=== PATIENT | male | born 1960 | race Caucasian/White ===

== ENCOUNTER 2018-11-19 08:18 | Inpatient (IN) ==
[2018-11-19] MEDS ORDERED: DILAUDID IV ONE (08:24)
[2018-11-19] MEDS: NS 1,000 ML IV ONE ×2 (08:25→10:26)
[2018-11-19] MEDS ORDERED: ZOFRAN IV ONE (08:25)
[2018-11-19] MEDS ORDERED: BENADRYL IV ONE ×3 (08:44→14:03)
[2018-11-19 08:55] LABS: BASO# 0.02 X1000 (0.0-0.2); BASO% 0.1 % (0.0-0.8); EOS% 1.4 % (0.0-10.0); HEMATOCRIT 50.4 % (42.0-52.0); HEMOGLOBIN 17.9 g/dL (14.0-18.0); IMM GRAN# 0.06 X1000 (0.0-0.04); IMM GRAN% 0.3 % (0.0-0.5); LYMPH# 6.33 X1000 (1.2-3.4); LYMPH% 29.1 % (20.5-51.1); MCH 29.1 PG (27-31); MCHC 35.5 g/dL (33-37); MONO% 4.6 % (1.7-9.3); NEUT# 14.01 X1000 (1.4-6.5); NEUT% 64.5 % (42.2-75.2); PLT 362 X1000 (130-400); RBC 6.15 XMIL (4.7-6.1); RDW 13.4 % (11.5-14.5); WBC 21.72 X1000 (4.8-10.8)
--- NOTE | 2018-11-19 09:08 | Diag Imaging Result Doc PS360 ---
EXAM: ABDOMEN FLAT/UPRIGHT - 11/19/2018 HISTORY: abdominal pain TECHNIQUE: Supine and upright abdomen COMPARISON: None. FINDINGS: The bowel gas pattern appears nonspecific and nonobstructive. There is no free air identified. There are surgical clips at the right upper quadrant. There are lumbar spine surgical changes noted. IMPRESSION: Nonspecific bowel gas pattern. Electronically signed by Domingo Burrell 11/19/2018 9:06 AM
--- NOTE | 2018-11-19 09:09 | Diag Imaging Result Doc PS360 ---
EXAM: CHEST-1 VIEW - 11/19/2018 HISTORY: abdominal pain TECHNIQUE: One view chest COMPARISON: 12/13/2016 FINDINGS: Heart size is normal. Inspiration is mildly shallow. There is mild prominence of lower lung interstitial markings which appears to be chronic. There is no acute consolidation, pleural effusion, or pneumothorax identified. IMPRESSION: Mildly shallow inspiration. No other evidence of acute disease. Electronically signed by Domingo Burrell 11/19/2018 9:07 AM
[2018-11-19 09:12] LABS: AGAP 20; ALB/GLOB RATIO 1.2; ALKALINE PHOSPHATASE 120 U/L (32-122); BUN 26 mg/dL (8-22); CALCIUM 8.3 mg/dL (8.8-10.2); CHLORIDE 99 mmol/L (98-107); CK PROFILE 53 U/L (24-204); COSMO 288; ESTIMATED GFR > 60; GLUCOSE 260 mg/dL (70-104); GOT 21 U/L (10-34); GPT 35 U/L (10-44); LIPASE 23 U/L (13-60); POTASSIUM 3.8 mmol/L (3.5-5.1); SODIUM 137 mmol/L (136-145); TCO2 18 mmol/L (25-35); TOTAL BILIRUBIN 1.33 mg/dL (0.20-1.00); TOTAL PROTEIN 7.3 g/dL (6.3-8.3)
[2018-11-19] MEDS ORDERED: ZOSYN 3.375 GM in NS 50 ML IV ONE (09:14)
[2018-11-19] MEDS ORDERED: NS 2,000 ML ONE (10:18)
--- NOTE | 2018-11-19 10:28 | Diag Imaging Result Doc PS360 ---
EXAM: CT ABD/PELVIS W/IV CONT ONLY - 11/19/2018 HISTORY: abdominal pain,leukocytosis TECHNIQUE: CT abdomen/pelvis with intravenous contrast. No oral contrast administered per request of the referring provider. COMPARISON: 12/13/2016 FINDINGS: The visualized lung bases appear clear except for mild dependent atelectasis. There are some emphysematous changes noted. The stomach is distended with fluid. There is generalized mild to moderate small bowel wall thickening. There is no evidence of bowel obstruction. There are some retained fluid in the colon. The colon presley do not appear grossly thickened. There is a small amount of free fluid, some which is located adjacent to the appendix. The appendix shows no obvious inflammation. There is no abscess identified. There is no free air identified. There is mild uncomplicated colonic diverticulosis. There is fatty infiltration of the liver similar to prior. There are no other substantial abnormalities of the liver, spleen, adrenal glands, or pancreas identified. The gallbladder surgically absent. There are fairly extensive atherosclerotic calcifications noted. There are lumbar spine postsurgical changes noted. There is chronic thickening of the urinary bladder presley. IMPRESSION: Moderate generalized gastroenterocolitis. Small amount of free fluid. No free air. No bowel obstruction. No abscess. Mild uncomplicated colonic diverticulosis. This exam was performed using automated exposure control, adjustment of mA or kV according to patient size, and/or use of iterative reconstruction technique. Electronically signed by Domingo Burrell 11/19/2018 10:26 AM
[2018-11-19 10:32] LABS: URINE SOURCE CLEAN CATCH
[2018-11-19 10:37] LABS: BILIRUBIN URINE NEGATIVE (NEGATIVE); BLOOD URINE NEGATIVE (NEGATIVE); COLOR YELLOW; GLUCOSE URINE 150 mg/dL (NEGATIVE); KETONE URINE NEGATIVE (NEGATIVE); LEUKOCYTES URINE NEGATIVE (NEGATIVE); NITRITE URINE NEGATIVE (NEGATIVE); PROTEIN URINE 30 mg/dL (NEGATIVE); TURBIDITY URINE CLEAR (CLEAR); UR EPITHELIAL CELLS <10 /HPF (<10); URINE BACTERIA NEGATIVE /HPF; URINE RBC <10 /HPF (<10); URINE WBC <10 /HPF (<10); UROBILINOGEN URINE NORMAL (NORMAL)
[2018-11-19 10:46] LABS: SP GRAVITY URINE < 1.005
[2018-11-19] MEDS ORDERED: NS 500 ML IV ONE (11:05)
[2018-11-19] MEDS ORDERED: NS 1,000 ML IV ONE (11:05)
[2018-11-19] MEDS ORDERED: MAXIPIME 2 GM in NS 100 ML IV ONE (11:05)
--- NOTE | 2018-11-19 11:12 | PROVIDER DOCUMENTATION ---
This chart was entered by Ita Hallman Scribe, acting as scribe for Dale Lynne MD. HPI-Abdominal Pain/GI Problem - General Chief Complaint: Abdominal Pain Stated Complaint: ABDOMINAL PAIN Time Seen by Provider: 11/19/18 08:24 Source: patient, family () Allergies/Adverse Reactions: Patient Allergies Allergy/AdvReac Type Severity Reaction Status Date / Time bee venom protein (honey bee) Allergy Severe ANAPHYLAXIS Verified 11/19/18 10:00 Sulfa (Sulfonamide Allergy Intermediate RASH Verified 11/19/18 10:00 Antibiotics) vancomycin Allergy ANAPHYLAXIS Verified 11/19/18 10:00 Home Medications: Home Medication List Medication Instructions Recorded Confirmed Last Taken Type Aspirin 325 mg PO DAILY 10/31/13 11/19/18 11/19/18 History Glyburide 5 mg PO BID 10/31/13 11/19/18 11/19/18 History Pantoprazole Sodium [Protonix] 40 mg PO DAILY 10/31/13 11/19/18 11/19/18 History Simvastatin [Zocor] 20 mg PO QHS 10/31/13 11/19/18 1 Day Ago History ~11/18/18 Albuterol Sulfate [Ventolin Hfa] 2 puff INH BID 05/23/14 11/19/18 11/19/18 History Insulin Glargine,Hum.rec.anlog 40 unit SQ QHS 12/13/16 11/19/18 1 Day Ago History [Lantus Solostar] ~11/18/18 Oxycodone HCl [Roxicodone] 30 mg PO TID PRN 12/23/16 11/19/18 11/19/18 History Lisinopril/Hydrochlorothiazide 1 ea PO QAM 11/19/18 11/19/18 11/19/18 History [Lisinopril-Hctz 20-25 mg Tab] - History of Present Illness-ABD Nature of Presenting Problems: 58 y/o male presents to the ED via EMS with complaint and abdominal pain with feeling of pressure and "going to pop", nausea, dry heaves, and profuse watery diarrhea since yesterday and worsening this am after eating a lot of waffles. states the patient passed out twice prior to arrival but was easily aroused. The patient denies urinary symptoms. H/o diabetes, chronic back pain for which he takes Oxycodone, COPD, and previous bladder CA, allergy to Sulfur and VANCOMYCIN. Previous history of cholecystectomy and back surgery. PCP Dr. Mcclendon. Abdominal Pain Onset Location: reports: generalized abdomen Pain Radiation: reports: no radiation Quality of Pain: reports: fullness, pressure Onset/Duration: reports: 24 hours ago Timing: reports: still present Activities at Onset: reports: light activity Exposure to sick contacts?: No Modifying Factors: worse with: eating Associated Symptoms: reports: diarrhea, nausea, other (dry heave). denies: chest pain, fever/chills, genitourinary problems Dark Stools Present?: reports: none noticed Rectal Bleeding: reports: none Rectal Pain: reports: none Bruising or Bleeding Gums?: No Similar Symptoms Previously?: No Recently seen or treated by another doctor?: No Review of Systems - Adult - REVIEW OF SYSTEMS - ADULT Constitutional: reports: no symptoms reported Eyes: reports: no symptoms reported Ears, Nose, Mouth & Throat: reports: no symptoms reported Cardiovascular: denies: chest pain, irregular heart rate, palpitations Respiratory: reports: no symptoms reported Gastrointestinal: reports: see HPI, abdominal pain (pressure/fullness), diarrhea , nausea, other (dry heaves) Genitourinary: denies: dysuria, hematuria, hesitency, urinary retention, urgency Musculoskeletal: reports: back pain (chronic). denies: bone pain, joint swelling Integumentary: reports: no symptoms reported Neurological: reports: no symptoms reported Psychiatric: reports: no symptoms reported Endocrine: reports: no symptoms reported Hematologic/Lymphatic: reports: no symptoms reported Allergic/Immunologic: reports: no symptoms reported All Other Systems: Reviewed and Negative Past History - Adult - PAST MEDICAL HISTORY-ADULT Review of Records: reports: Old Records Reviewed, Nursing Assessment Review, Medications Reviewed Major Childhood Illnesses: reports: denies history Cardiovascular: reports: denies history, HTN, hyperlipidemia Respiratory: reports: denies history, COPD Gastrointestinal: reports: denies history, GERD Obstetrical/Gynecological: reports: denies history Genitourinary: reports: denies history Musculoskeletal: reports: chronic pain Neurological: reports: denies history Psychiatric: reports: denies history Endocrine/Immune: reports: Diabetes, other Other Conditions: reports: denies history - PRIOR SURGERIES/PROCEDURES Surgical/Procedure History: reports: cholecystectomy, tonsillectomy, hernia repair - IMMUNIZATION STATUS Childhood Immunizations: See Nurse Assessment Flu Vaccine: See Nurse Assessment - FAMILY HISTORY Family History: reviewed, not pertinent - SOCIAL HISTORY Smoking: cigarettes, less than 1 pack/day Provider spent 3-5 mins advising pt. on dangers of tobacco.: Discussed manners to quit use, and f/u contacts for add'l counseling. Substance Use: denies Living Situation: family Physical Exam-General - PHYSICAL EXAM-ADULT Initial Vital Signs Reviewed: Yes - CONSTITUTIONAL General Appearance: alert, moderate distress - EYES Eyes: PERRL/EOMI - HEAD, EARS, NOSE, MOUTH & THROAT HENMT: pharynx normal, other (dry mucous membranes). negative: moist mucous membranes - RESPIRATORY Respiratory: lungs clear, normal breath sounds. negative: rales, rhonchi, wheezing - CARDIOVASCULAR Cardiovascular: no gallop, no murmur, tachycardia - GASTROINTESTINAL (ABDOMEN) Abdominal Exam: abnormal bowel sounds (diminished), distended (severely) - SKIN Integumentary: normal color, warm/dry, warm - NEUROLOGIC Neurologic: grossly normal - PSYCHIATRIC Psych/Mental Status: oriented x 3 Progress - PLAN OF CARE/RESULTS Progress/Plan/Lab Results: Vital Signs - 8 hr 11/19/18 08:23 11/19/18 08:25 Temperature 97.7 F Pulse Rate 118 H 116 H Respiratory Rate 26 H 24 Blood Pressure 107/71 O2 Sat by Pulse Oximetry 94 L 90 L Orders Category Date Time Status Cardiac Monitoring DIRECTED Care 11/19/18 08:25 Active FSBS/Accucheck Result NOW Care 11/19/18 08:24 Active Saline Loc DIRECTED Care 11/19/18 08:25 Active NPO Diet 11/19/18 08:25 Active ABDOMEN FLAT/UPRIGHT [RAD] Stat Exams 11/19/18 08:27 Ordered CHEST-1 VIEW [RAD] Stat Exams 11/19/18 08:27 Ordered CBC WITH ELECTRONIC DIFF [HEME] Stat Lab 11/19/18 08:25 Uncollected CK PROFILE [SP CHEM] Stat Lab 11/19/18 08:27 Uncollected COMPREHENSIVE METABOLIC PANEL [CHEM] Stat Lab 11/19/18 08:25 Uncollected LIPASE [CHEM] Stat Lab 11/19/18 08:25 Uncollected TROPONIN T Stat Lab 11/19/18 08:26 Uncollected URINALYSIS W/POSS RFLX CULT [URINALYSIS] Stat Lab 11/19/18 08:25 Uncollected 0.9% Sodium Chloride Inj [Ns] 1,000 ml Med 11/19/18 08:25 Active IV 999 mls/hr Hydromorphone [Dilaudid] Med 11/19/18 08:24 Discontinued 1 mg IV NOW ONE Ondansetron [Zofran] Med 11/19/18 08:25 Discontinued 4 mg IV NOW ONE EKG [EKG] Stat Ther 11/19/18 08:26 Ordered 0843 Blood sugar 253. The patient is complaining of itching all over. Will give Benadryl. 0902 The patient has developed generalized mottled erythematous appearance. Rates abdominal pain as 2/10 now. 0936 The patient feels warm to touch. Oral temp was normal. Will do core temp. Result Diagrams: 11/19/18 08:35 11/19/18 08:35 - EKG 1 Time of EKG reading by physician:: 08:47 EKG Read and Signed by:: Dale Lynne (No STEMI ) EKG Interpretation (*Must complete 3 of following elements*): Abnormal Rate: 106 Rhythm: sinus tachycardia Franklin: normal QRS: normal - XRAY 1 XRAY Study: Chest Impression: Normal (EXAM: CHEST-1 VIEW - 11/19/2018 HISTORY: abdominal pain TECHNIQUE: One view chest COMPARISON: 12/13/2016 FINDINGS: Heart size is normal. Inspiration is mildly shallow. There is mild prominence of lower lung interstitial markings which appears to be chronic. There is no acute consolidation, pleural effusion, or pneumothorax identified. IMPRESSION: Mildly shallow inspiration. No other evidence of acute disease. Electronically signed by [employer] 11/19/2018 9:07 AM) 2 XRAY Study: Abdomen (EXAM: ABDOMEN FLAT/UPRIGHT - 11/19/2018 HISTORY: abdominal pain TECHNIQUE: Supine and upright abdomen COMPARISON: None. FINDINGS: The bowel gas pattern appears nonspecific and nonobstructive. There is no free air identified. There are surgical clips at the right upper quadrant. There are lumbar spine surgical changes noted. IMPRESSION: Nonspecific bowel gas pattern. Electronically signed by [employer] 11/19/2018 9:06 AM) - CT/MRI 1 CT Study: Abdomen, Pelvis Impression: See EMR Report (EXAM: CT ABD/PELVIS W/IV CONT ONLY - 11/19/2018 HISTORY: abdominal pain,leukocytosis TECHNIQUE: CT abdomen/pelvis with intravenous contrast. No oral contrast administered per request of the referring provider. COMPARISON: 12/13/2016 FINDINGS: The visualized lung bases appear clear except for mild dependent atelectasis. There are some emphysematous changes noted. The stomach is distended with fluid. There is generalized mild to moderate small bowel wall thickening. There is no evidence of bowel obstruction. There are some retained fluid in the colon. The colon presley do not appear grossly thickened. There is a small amount of free fluid, some which is located adjacent to the appendix. The appendix shows no obvious inflammation. There is no abscess identified. There is no free air identified. There is mild uncomplicated colonic diverticulosis. There is fatty infiltration of the liver similar to prior. There are no other substantial abnormalities of the liver, spleen, adrenal glands, or pancreas identified. The gallbladder surgically absent. There are fairly extensive atherosclerotic calcifications noted. There are lumbar spine postsurgical changes noted. There is chronic thickening of the urinary bladder presley. IMPRESSION: Moderate generalized gastroenterocolitis. Small amount of free fluid. No free air. No bowel obstruction. No abscess. Mild uncomplicated colonic diverticulosis. This exam was performed using automated exposure control, adjustment of mA or kV according to patient size, and/or use of iterative reconstruction technique. Electronically signed by Domingo Burrell 11/19/2018 10:26 AM) - CONSULTS/PCP/HOSPITALIST Notification #1 *Consult/PCP/Hospitalist*: Dr. Toledo for Dr. Mcclendon Time Discussed: 11:15 Reason/Comments: elevated lactase acid Consult Disposition: Will see in ED, Admit Departure - Departure Date of Disposition Decision: 11/19/18 Time of Disposition Decision: 12:20 DIAGNOSIS: Elevated lactic acid level, Tobacco abuse disorder Leukocytosis Qualifiers: Leukocytosis type: unspecified Qualified Code(s): D72.829 - Elevated white blood cell count, unspecified Abdominal pain Qualifiers: Abdominal location: unspecified location Qualified Code(s): R10.9 - Unspecified abdominal pain Disposition: ADMITTED INPATIENT 09 Certified Medical Emergency: Emergent Condition: Stable - Critical Care Note This patient required my direct & personal management of CC.: Yes Total Time (mins): 65 Critical Care Statement: This patient required my direct personal management to treat or rule out processes, the absence of which, could potentiallly result in sudden, clinically significant life or limb threatening deterioration. Attestation - Physician/ JAVIER Attestation Patient care was provided by Advanced Practice Provider:: No The physician spent face to face time with patient:: Yes Advanced Practice Provider documentation review:: Supervising physician onsite and consulted in the evaluation and care of this patient. The physician did have a face to face encounter with the patient. This chart was documented by the indicated scribe, (Ita Hallman, Stephanie) and accurately reflects the services I performed and decisions made by me, Dale Lynne MD, as attested by the provider's signature.
[2018-11-19] MEDS ORDERED: EPINEPHRINE 8 MG in D5W 250 ML IV SCH (11:15)
[2018-11-19] MEDS ORDERED: PITRESSIN 40 UNIT in NS 100 ML IV SCH (11:15)
[2018-11-19] MEDS ORDERED: LEVOPHED 8 MG in D5 1/2 NS 250 ML IV SCH (11:15)
[2018-11-19] MEDS ORDERED: SODIUM CHLORIDE 0.9% INJ PRN (11:53)
[2018-11-19] MEDS ORDERED: PHENERGAN IV PRN (11:53)
--- NOTE | 2018-11-19 12:30 | HISTORY AND PHYSICAL ---
CHIEF COMPLAINT: Severe abdominal pain. PRESENT ILLNESS: This is the first recent [facility] admission for this 58-year-old white man, patient of Dr. Mcclendon, who presented to the emergency room with severe abdominal pain. He had some vomiting yesterday and today, and diarrhea. There was no hematemesis or melena. He had a pruritic rash this morning. He has taken no recent medicines. He has chronic back pain and is on oxycodone. CT of his abdomen was done in the emergency room, revealing some diverticulosis and some nonspecific gastritis and colitis. White blood count was almost 22,000. He has had no fever. He is admitted for further evaluation and treatment, and will be given Flagyl and Levaquin. PAST MEDICAL HISTORY: Significant for: 1. Bladder cancer. 2. Cholecystectomy. PRESENT MEDICATIONS: 1. Albuterol HFA inhaler b.i.d. 2. Aspirin 325 mg daily. 3. Glyburide 5 mg b.i.d. 4. Lantus insulin 40 units at bedtime. 5. Lisinopril HCT 20/25 one daily. 6. Oxycodone 30 mg q.6 hours p.r.n. pain. 7. Pantoprazole 40 mg one daily. 8. Simvastatin 20 mg at bedtime. ALLERGIES: Sulfa and vancomycin. REVIEW OF SYSTEMS: Unremarkable except for the above. FAMILY HISTORY: No colon cancer. There is history of hypertension and heart disease. SOCIAL HISTORY: and lives with his . PHYSICAL EXAMINATION: VITAL SIGNS: Temperature 98.6 degrees, heart rate 100, respirations 12, blood pressure 106/72. GENERAL: Patient is a well developed, well nourished white man in moderate distress with abdominal pain. HEENT: Pupils are equal, round, and reactive to light. Tympanic membranes without inflammation. Pharynx benign. NECK: Supple with no mass or lymphadenopathy. HEART: Regular in rate and rhythm with no murmur, rub, or gallop. LUNGS: Clear with no rales or rhonchi. ABDOMEN: Generalized tenderness. Bowel sounds are active. Tenderness is moderate, even after receiving some IV pain medicine in the emergency room. There is a generalized erythematous rash, urticarial. EXTREMITIES: No cyanosis, clubbing, or edema. RECTAL AND GENITALIA: Deferred. IMPRESSION: 1. Gastroenteritis. 2. Chronic back pain. 3. Hypercholesterolemia. 4. Urticarial rash of undetermined etiology. PLAN: Admit for further evaluation and treatment. cc: Armando Toledo MD
[2018-11-19 12:39] LABS: INR 0.91
[2018-11-19 12:40] LABS: PTT 26.7 Seconds (22.3-41.8)
[2018-11-19] MEDS: FLAGYL 500 MG/NS 500 MG/100 ML IVPB IV SCH ×2 (13:00→18:30)
[2018-11-19] MEDS: DILAUDID IV PRN ×2 (13:13→21:47)
[2018-11-19] MEDS: SOLU-MEDROL IV SCH ×2 (15:24→23:05)
[2018-11-19] MEDS: LEVAQUIN 750 MG/D5W 750 MG/150 ML IVPB IV SCH (15:29)
[2018-11-19] MEDS: VENTOLIN HFA INH SCH (20:13)
[2018-11-19] MEDS: DIABETA PO SCH (21:33)
[2018-11-19] MEDS: ZOCOR PO SCH (21:33)
[2018-11-19] MEDS: BASAGLAR SUBQ SCH (21:34)
[2018-11-20] MEDS: FLAGYL 500 MG/NS 500 MG/100 ML IVPB IV SCH ×4 (00:05→18:05)
[2018-11-20] MEDS: SOLU-MEDROL IV SCH (06:20)
[2018-11-20 07:15] LABS: BASO# 0.01 X1000 (0.0-0.2); BASO% 0.1 % (0.0-0.8); EOS# 0.01 X1000 (0.0-0.7); EOS% 0.1 % (0.0-10.0); HEMATOCRIT 35.2 % (42.0-52.0); HEMOGLOBIN 12.1 g/dL (14.0-18.0); IMM GRAN# 0.02 X1000 (0.0-0.04); IMM GRAN% 0.2 % (0.0-0.5); LYMPH# 1.02 X1000 (1.2-3.4); LYMPH% 9.1 % (20.5-51.1); MCH 29.4 PG (27-31); MCHC 34.4 g/dL (33-37); MCV 85.4 FL (81-99); MONO# 0.08 X1000 (0.11-0.59); MONO% 0.7 % (1.7-9.3); MPV 9.8 FL (7.4-10.4); NEUT# 10.03 X1000 (1.4-6.5); NEUT% 89.8 % (42.2-75.2); PLT 198 X1000 (130-400); RBC 4.12 XMIL (4.7-6.1); RDW 13.3 % (11.5-14.5); WBC 11.17 X1000 (4.8-10.8)
[2018-11-20 07:29] LABS: BANDS 2 % (0-1); LYMPHS 9 % (21-51); SEGS 89 % (42-75)
[2018-11-20] MEDS: DILAUDID IV PRN ×2 (07:35→10:33)
[2018-11-20] MEDS: VENTOLIN HFA INH SCH ×2 (08:18→20:01)
[2018-11-20] MEDS: DIABETA PO SCH ×2 (08:48→20:30)
[2018-11-20] MEDS: PROTONIX PO SCH (08:48)
[2018-11-20] MEDS: ASPIRIN PO SCH (08:49)
[2018-11-20] MEDS: PRINZIDE 10/12.5MG PO SCH (08:49)
--- NOTE | 2018-11-20 12:05 | PROGRESS NOTE ---
DATE: 11/20/2018 OBJECTIVE: Vital signs stable with temperature 97.9 degrees, heart rate 83, respirations 16, blood pressure 114/66, O2 saturation on room air 100%. LABORATORY DATA: Hemoglobin 12.1, hematocrit 35.2, white blood count 30180 with 90% neutrophils. Last plasma lactate was yesterday and was 2.4. SUBJECTIVE: He is feeling much better this morning with no nausea. Appetite is increased. He continues to have some back pain and takes routine oxycodone at home. PLAN: Continue Levaquin and Flagyl, allow a regular diet, and change the pain medicine to p.o. oxycodone. Discharge will be considered tomorrow if he continues to improve. cc: Armando Toledo MD
[2018-11-20] MEDS: OXY IR PO PRN ×2 (13:19→18:08)
[2018-11-20] MEDS: LEVAQUIN 750 MG/D5W 750 MG/150 ML IVPB IV SCH (13:21)
[2018-11-20] MEDS ORDERED: HUMALOG SUBQ ONE (18:24)
[2018-11-20] MEDS: BASAGLAR SUBQ SCH (20:30)
[2018-11-20] MEDS: ZOCOR PO SCH (20:30)
[2018-11-21] MEDS: FLAGYL 500 MG/NS 500 MG/100 ML IVPB IV SCH ×2 (00:42→06:47)
[2018-11-21] MEDS: OXY IR PO PRN ×3 (02:13→18:22)
[2018-11-21] MEDS: ASPIRIN PO SCH (08:01)
[2018-11-21] MEDS: DIABETA PO SCH (08:01)
[2018-11-21] MEDS: PRINZIDE 10/12.5MG PO SCH (08:01)
[2018-11-21] MEDS: PROTONIX PO SCH (08:02)
--- NOTE | 2018-11-21 08:33 | EKG Report ---
Test Performed on : 11/19/2018 08:46:21 AM Test Reason : pain Blood Pressure : / mmHG Vent. Rate : 106 BPM Atrial Rate : 106 BPM P-R Int : 116 ms QRS Dur : 070 ms QT Int : 336 ms P-R-T Axes : 074 -17 073 degrees QTc Int : 446 ms Sinus tachycardia. Otherwise normal ECG When compared with ECG of 21-DEC-2016 13:18, No significant change was found Unconfirmed Result
[2018-11-21] MEDS: VENTOLIN HFA INH SCH ×2 (08:35→20:27)
[2018-11-21] MEDS ORDERED: LEVAQUIN PO SCH (13:00)
[2018-11-21] MEDS: FLAGYL PO SCH ×2 (14:07→18:23)
[2018-11-21 20:17] VITALS: BP 123/62
--- NOTE | 2018-11-21 20:57 | PROGRESS NOTE ---
DATE: 11/21/2018 SUBJECTIVE: A 58-year-old, white male, admitted to the hospital on 11/19/2018 with severe abdominal pain, nausea, vomiting. White cell count 22,000. CT scan showed gastroenteritis and diverticulosis. PAST MEDICAL HISTORY: Reviewed. PAST SURGICAL HISTORY: Reviewed. MEDICINES: Reviewed. ALLERGIES: Reviewed. REVIEW OF SYSTEMS: He is feeling better. Denies of any rash. No chest pain. No GI symptoms. No nausea vomiting, diarrhea. EXAMINATION: Vital Signs: Temperature is 97.5, pulse is 73, blood pressure 133/62. HEENT: Within normal limits. Neck: Supple. No lymphadenopathy. No goiter. Chest: Bilateral air entry. Heart: Sounds are regular. Abdomen: Belly is soft, nontender. Good bowel sounds. No masses palpable. No obvious neurological deficits. INVESTIGATIONS: White cell count 11.1, hematocrit 35, platelets 198. SMA-7 was normal. LFTs were normal. Urinalysis is clear. Blood cultures were negative. ASSESSMENT AND PLAN: 1. Abdominal pain. Gastroenteritis with elevated white cell count. Etiology to be determined. Check the CBC, A1c, BMP in the morning. If he is stable, discharge in the morning. 2. Advance diabetic diet. 3. Diabetes. Insulin glargine 40 units subcutaneous at bedtime. On DiaBeta also. 4. Hyperlipidemia on Zocor. 5. Continue on probiotics. 6. IV access is a problem. 7. Discontinue Levaquin. Change to Flagyl. 8. Chronic pain continue present medications and if stable will discharge this afternoon or in the morning. LEVEL OF DOCUMENTATION: 35 minutes. cc: MD Armando Appiah MD
[2018-11-22] MEDS ORDERED: CULTURELLE PO SCH (09:00)
--- NOTE | 2018-11-23 05:43 | DISCHARGE SUMMARY ---
ADMISSION DATE: 11/19/2018 DISCHARGE DATE: 11/21/2018 DISCHARGING DIAGNOSIS: Gastroenteritis with dehydration. SECONDARY DIAGNOSES: 1. Chronic back pain with hardware fusion, on pain management. 2. Superficial bladder cancer status post mitomycin and BCG by Dr. Enamorado. 3. Chronic obstructive pulmonary disease. 4. Type 2 diabetes. 5. Hypertension. 6. Hyperlipidemia. 7. Hypogonadism. 8. 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 9. Acid reflux disease. BRIEF HISTORY: Please see the H and P that was done by Dr. Samy Toledo on 11/19/2018. In brief, he is a 58-year-old white male with above problems. Came in with abdominal pain, nausea, vomiting, some rash. He had a high white cell count. Patient was admitted for gastroenteritis and dehydration. Patient was given IV fluids, symptomatic treatment. Further workup, CBC, white cell count came down from 21,000 to 11,000. Hematocrit 35, platelets 198,000. Patient is tolerating the diet very well. I did ask him to stay 1 more day to see the follow up on the labs. He basically refused to stay, he said he is feeling better. IV access is problematic. He was discharged home on 11/21/2018. LABS: SMA 7: Sodium 137, potassium 3.8, BUN 26, creatinine 1.0. Glucose 169. LFTs were normal. Urinalysis is clear. Blood cultures were negative. Flu test was negative. IMAGING: CT scan of the abdomen and pelvis reported fatty liver, gastroenteritis, free fluid. No bowel obstruction, no abscess, diverticulosis. DISCHARGE DISPOSITION AND INSTRUCTIONS: The patient was discharged home with the following instructions. 1. Simvastatin 20 daily. 2. Protonix 40 daily. 3. Glyburide 5 mg p.o. b.i.d. 4. Aspirin 325 daily. 5. Lantus 40 units subcutaneous at bedtime. 6. Ventolin HFA q.6 hours as needed. 7. Roxicodone 30 mg p.o. t.i.d. 8. Lisinopril-hydrochlorothiazide 20-25 in the morning. 9. Follow up in our office next week. cc: MD Armando Appiah MD
== END 2018-11-21 21:00 | disposition left against medical advice (07) | DRG 392 ==
LOC: SUPCPDRO → ED 08:18 → 3N 08:19
PROVIDERS: ADMIT Family Medicine; ATTEND Internal Medicine
CPT/HCPCS: 71010; 71045; 74019; 74020; 74177; 80053; 81001; 82550; 82948; 83605; 83690; 84484; 85025; 85610; 85730; 87040; 87275; 87276; 87804; 93005; 94640; 96361; 96365; 96367; 96375; 99285; A9270; J0692; J1170; J1200; J1815; J1956; J2405; J2543; J2930; J7030; Q9967; S0030; XXXXX

== ENCOUNTER 2019-09-04 14:51 | Inpatient (IN) ==
[2019-09-04] MEDS ORDERED: SYMBICORT 160/4.5 MICROGM INHALER INH SCH (17:10)
[2019-09-04] MEDS: OXY IR PO SCH ×2 (17:36→21:02)
[2019-09-04] MEDS: NS 1,000 ML IV SCH (17:36)
[2019-09-04 18:22] LABS: AGAP 12; ALB/GLOB RATIO 1.1; ALBUMIN 3.8 g/dL (3.5-5.0); ALKALINE PHOSPHATASE 104 U/L (32-122); BUN 19 mg/dL (8-22); CALCIUM 8.9 mg/dL (8.8-10.2); CHLORIDE 96 mmol/L (98-107); COSMO 281; ESTIMATED GFR > 60; GLUCOSE 316 mg/dL (70-104); GOT 10 U/L (10-34); GPT 10 U/L (10-44); POTASSIUM 4.1 mmol/L (3.5-5.1); SODIUM 133 mmol/L (136-145); TCO2 25 mmol/L (25-35); TOTAL BILIRUBIN 0.86 mg/dL (0.20-1.00); TOTAL PROTEIN 7.2 g/dL (6.3-8.3)
[2019-09-04 18:24] LABS: BASO# 0.07 X1000 (0.0-0.2); BASO% 0.4 % (0.0-0.8); EOS# 0.46 X1000 (0.0-0.7); EOS% 2.4 % (0.0-10.0); HEMATOCRIT 51.1 % (42.0-52.0); HEMOGLOBIN 17.5 g/dL (14.0-18.0); IMM GRAN# 0.05 X1000 (0.0-0.04); IMM GRAN% 0.3 % (0.0-0.5); LYMPH# 3.73 X1000 (1.2-3.4); LYMPH% 19.5 % (20.5-51.1); MCH 28.1 PG (27-31); MCHC 34.2 g/dL (33-37); MCV 82.2 FL (81-99); MONO# 0.83 X1000 (0.11-0.59); MONO% 4.3 % (1.7-9.3); MPV 9.4 FL (7.4-10.4); NEUT# 13.95 X1000 (1.4-6.5); NEUT% 73.1 % (42.2-75.2); PLT 270 X1000 (130-400); RBC 6.22 XMIL (4.7-6.1); RDW 14.4 % (11.5-14.5); WBC 19.09 X1000 (4.8-10.8)
[2019-09-04] MEDS: NICODERM PATCH TD SCH (18:34)
[2019-09-04] MEDS: LANTUS INSULIN SUBQ SCH (21:00)
[2019-09-04] MEDS: METHADONE PO SCH (22:31)
[2019-09-04] MEDS: SYMBICORT 160/4.5 MICROGM INHALER INH SCH (22:45)
[2019-09-04] MEDS: VENTOLIN HFA INH SCH (22:45)
[2019-09-05] MEDS: ATROVENT HFA INH SCH ×4 (00:26→20:26)
[2019-09-05] MEDS: NS 1,000 ML IV SCH (06:05)
[2019-09-05] MEDS: OXY IR PO SCH ×4 (06:06→20:43)
[2019-09-05] MEDS: PROTONIX PO SCH (06:07)
[2019-09-05] MEDS: VENTOLIN HFA INH SCH ×4 (07:54→20:25)
[2019-09-05] MEDS: SYMBICORT 160/4.5 MICROGM INHALER INH SCH ×2 (07:54→20:24)
--- NOTE | 2019-09-05 08:17 | HISTORY AND PHYSICAL ---
CHIEF COMPLAINT: 1. Atypical chest pain. 2. Difficulty in swallowing. HISTORY OF PRESENT ILLNESS: He is a 59-year-old white gentleman. He was evaluated last week in [facility] ER. He was found to have abnormal CT, which showed esophageal thickening and dilatation of the stomach. He has intermittent swallowing difficulties. He also has atypical chest pain. He came to my office last week as a followup. Outpatient cardiac workup was negative, as per Dr. Ogden. Over the weekend he had a hard time to swallow, and not able to eat anything. He also has elevated white cell count. He is basically admitted to the hospital for impending dehydration, and needs some IV fluids and IV Protonix. GI workup was initiated. PAST MEDICAL HISTORY: 1. Tobacco abuse/chronic nicotine abuse. 2. Type 2 diabetes. 3. Chronic pain, on pain management with Dr. Lagos. 4. Hypertension. 5. Hyperlipidemia. 6. Hypogonadism. 7. Peptic ulcer disease. 8. 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 9. Superficial bladder cancer, under the care of Dr. Foster. PAST SURGICAL HISTORY: 1. Cholecystectomy. 2. Back surgery. 3. Right inguinal hernia repair. 4. Superficial bladder cancer surveillance. 5. 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 ALLERGIES: Reported to [facility], [facility]. SOCIAL HISTORY: , lives in [place]. Six children. Disabled. Smoking 1 pack a day for several years. Socially drinks alcohol. FAMILY HISTORY: Father of 72 from [place]. Mom of endstage COPD. MEDICATIONS: Zocor 20 mg daily; Protonix 40 daily; glyburide 5, two tablets in the morning; oxycodone 30 mg t.i.d., lisinopril/hydrochlorothiazide 20/25 in the morning; Atrovent HFA 2 puffs t.i.d.; Symbicort 160/4.5, two puffs b.i.d.; testosterone shot 1 mL every 2 weeks; methadone 20 b.i.d.; aspirin 325 daily; insulin Lantus 60 units at bedtime. HEALTH MAINTENANCE: Flu vaccine 06/23/2019. REVIEW OF SYSTEMS: HEENT: No headache, no vision problem. No earache. No sore throat. Neck: No goiter. No lymphadenopathy. No bruit. Cardiopulmonary: No chest pain, shortness of breath, PND or orthopnea. Recent [facility] work[facility]. GI: Trouble swallowing including solids and not able to eat over the weekend. No altered bowel habits. No bleeding per rectum. : No history of hesitancy or frequency. History of hematuria. Diagnosed superficial bladder cancer, under the care of Dr. Foster. No claudication symptoms or chronic back pain. Neurologic: No focal symptoms or weakness. PHYSICAL EXAMINATION: VITAL SIGNS: Temperature is 97.8 degrees, pulse is 80. Vital signs are stable. HEENT: Atraumatic, normocephalic. Pupils equal and reactive to light. TMs are normal. Nose and throat within normal limits. NECK: Supple. No lymphadenopathy. No goiter. CHEST: Bilateral air entry. HEART: Sounds are regular. ABDOMEN: Belly is soft, nontender. Good bowel sounds. RECTAL: Normal prostate. Heme-negative stool. EXTREMITIES: No peripheral edema or cyanosis. NEUROLOGIC: No obvious neurological deficits. DIAGNOSTIC DATA: CT scan pulmonary angiogram on 08/29/2019: No pulmonary emboli; esophageal thickening; mild prominent mediastinal and hilar nodes; cholecystectomy; small amount of fluid around the liver and spleen; distended stomach. LABORATORY DATA: White cell count 19, hematocrit 51, platelet 270,000. Sodium 133, potassium 4.1, glucose 316. LFTs were normal. ASSESSMENT AND PLAN: 1. A 59-year-old white gentleman came in with atypical chest pain. Cardiac workup was negative. Dysphagic symptoms, chronic reflux disease, not able to improve. Impending dehydration. We will use intravenous fluids. Explained to the patient he was very sick. Admitted for observation. Dr. Sanchez consult for esophagogastroduodenoscopy. 2. Superficial bladder cancer, stable. 3. Type 2 diabetes, insulin dependent. Follow up on sliding scale with insulin coverage. 4. Polycythemia. Hematocrit was 64. Repeat level came back normal. It is due to testosterone. We will do a JAK2 mutation. 5. We will follow up. cc: Gavin Mcclendon MD
[2019-09-05] MEDS ORDERED: DIABETA PO SCH (09:00)
[2019-09-05] MEDS: ASPIRIN PO SCH (09:05)
[2019-09-05] MEDS: NICODERM PATCH TD SCH (09:05)
[2019-09-05] MEDS: PRINZIDE 10/12.5MG PO SCH (09:05)
[2019-09-05] MEDS ORDERED: DIPRIVAN 1% ONE (10:48)
[2019-09-05] MEDS ORDERED: XYLOCAINE-MPF 2% ONE (10:48)
--- NOTE | 2019-09-05 11:03 | GASTROENTEROLOGY CONSULTATION ---
DATE: 09/05/2019 REASON FOR CONSULTATION: Dysphagia. HISTORY OF PRESENT ILLNESS: Mr. Angel is a 59-year-old, male with a history of hypertension, diabetes, COPD and bladder cancer. He had come to the ER on Wednesday with chest pain, abdominal pain, throat pain, nausea, and vomiting. A chest x-ray on 08/29/2019 showed that the patient had poor inspiration. CT angiogram of the pulmonary artery showed that the patient had esophageal thickening, mild prominent mediastinal and hilar nodes, cholecystectomy, small amount of fluid in the liver and spleen, and distended stomach. The patient then went to see Dr. Mcclendon on , and he mentioned that Dr. Mcclendon had done a stress test on Wednesday and it was normal, but the patient was having the same symptoms. He was sick to his stomach, throwing up, with abdominal pain, chest pain, difficulty swallowing, throat hurting all the time. The patient does take aspirin 325 mg daily. The patient has denied noticing any blood in his emesis or any blood in his stools. He did have one bowel movement on Wednesday, and he says that he does have to take stool softeners. The patient also has an abdominal hernia. His abdomen is distended and firm. Patient has the history of bladder cancer, two years back Dr. Foster found a mass on his bladder and it was taken out. The patient was recently admitted to the hospital on 04/26/2019, and Dr. Foster did a procedure on him. He did cystoscopy with bilateral retrograde pyelogram. He also did a bladder biopsy with fulguration of bleeding. Pathology showed that the patient had noninvasive papillary urothelial carcinoma, low-grade, and muscularis propria not identified. Patient mentioned that his mass on the bladder cancer keeps coming back, he had seen Dr. Foster on , and he performed cystoscope with biopsy. PAST MEDICAL HISTORY: Hypertension, cholesterol, diabetes, COPD, bladder cancer, back pain, heart attack 20 years ago, tobacco use, abdominal hernia, and inguinal hernia. PAST SURGICAL HISTORY: Cholecystectomy, back surgery, right inguinal hernia repair, bladder cancer mass taken out, right hand surgery with staph inspection, tonsillectomy. ALLERGIES: The patient is allergic to sulfa, vancomycin, and bee venom. SOCIAL HISTORY: The patient is , has 6 children. He is on disability. Smoking half to 1 pack of cigarettes daily. He used to drink alcohol in the past. Denies any illicit drug use. FAMILY HISTORY: Father had heart problems, and mother had diabetes, skin cancer and COPD. HOME MEDICATIONS: Simvastatin 20 mg p.o. daily, Protonix 40 mg p.o. daily, glyburide 5 mg 2 tablets daily, oxycodone hydrochloride 30 mg p.o. 3 times a day, lisinopril/hydrochlorothiazide 20/25 mg 1 tablet in a.m., Atrovent inhalations 2 puffs 3 times a day, Symbicort 2 puffs 3 times a day, albuterol sulfate 2 puffs 3 times a day, testosterone/cypionate 100 mg/1 mL IM every 14 days, methadone 20 mg twice a day, aspirin 325 mg daily, and Lantus SoloStar 60 units at bedtime. REVIEW OF SYSTEMS: As per HPI. Otherwise, a 12-point review of systems is negative. PHYSICAL EXAMINATION: Vital Signs: Temperature 98 degrees, pulse 81, respirations 19, blood pressure 117/61, oxygen saturation 96%. The patient is on room air. His weight is 189 pounds, BMI is 30.6 kg/m2. General: He is alert and oriented x3. Answering questions appropriately, and in no acute distress. HEENT: Pale conjunctivae. No icterus. PERRL. Neck: Supple. Lungs: Clear to auscultation. Cardiovascular: Regular rate and rhythm. Abdomen: Firm, distended. Abdominal hernia noted. Hypoactive bowel sounds heard in all 4 quadrants. Extremities: No clubbing, no cyanosis, no edema. Pedal pulses 2+ present bilaterally. Neurologic: Alert and oriented x3. Nonfocal. Cranial nerves II through XII are grossly intact. LABORATORY DATA: WBCs are 19.09, RBC 6.22, hemoglobin 17.5, hematocrit is 51.1, platelet count is 270,000. Sodium 133, potassium 4.1, chloride 96, carbon dioxide 25, anion gap 12, BUN 19, creatinine is 1.0, glucose 316, calcium 8.9. Total bilirubin 0.86, AST 10, ALT 10, alkaline phosphatase is 104. IMPRESSION AND PLAN: Dysphagia Nausea and vomiting Abdominal pain Type II diabetes Hypertension COPD History of bladder cancer PLAN: Mr. Angel is a 59-year-old, male with a history of bladder cancer, type 2 diabetes, COPD and hypertension. GI has been consulted for his dysphagia. The patient is currently on normal saline at 75 mL/h. We have discussed the risks, benefits and alternatives of the EGD procedure which we are going to do today. Patient acknowledges understanding of the plan of care. Dictated by GAMA Rizvi for Marino Potts MD cc: Gavin Mcclendon MD Physician Attestation I have seen and examined the patient. I have discussed and reviewed the note by Beena MALLOY and agree with findings and plan as documented. MTDD
--- NOTE | 2019-09-05 11:06 | ENDOSCOPY OPERATIVE NOTE ---
[facility] ENDOSCOPY OPERATIVE NOTE , EGD PROCEDURE REPORT EXAM DATE: 09/05/2019 PATIENT NAME: Telly Angel MR#: [id number] BIRTHDATE: 1960 ATTENDING: Marino Potts MD STATUS: inpatient PIPE LINER: INDICATIONS: The patient is a 59 yr old male here for an EGD due to dysphagia, pharyngeal-esophageal and history of esophageal reflux. PROCEDURE PERFORMED: EGD w/ biopsy MEDICATIONS: Per Anesthesia ESTIMATED BLOOD LOSS: None CONSENT: The patient understands the risks and benefits of the procedure and understands that these r isks include, but are not limited to: sedation, allergic reaction, infection, perforation and/or bleeding. Alternative means of evaluation and treatment include, among others: physical exam, x-rays, and/or surgical intervention. The patient elects to proceed with this endoscopic procedure. DESCRIPTION OF PROCEDURE: During pre-op preparation period all mechanical and medical equipment was c hecked for proper function. Hand hygiene and appropriate measures for infection prevention was taken. After the risks, benefits and alternatives of the procedure were thoroughly explained, Informed consent was verified, confirmed and timeout was successfully executed by the treatment team. The patient was anesthetized with topical anesthesia and the [id number]-[id number] ([id number]) endoscope was introduced through the mouth and advanced to the second portion of the duoden um. Retroflexion was performed in the stomach and revealed no abnormalities. The gastroscope was then slowly withdraw n and removed. The patient's toleration of the procedure was excellent. ESOPHAGUS: The z-line was noted at 40cm from the incisors. The z-line appeared normal. Esophagitis was found in the lower third of the esophagus. Esophagitis was LA Class A: One or more mucosal breaks < 5 mm in maxim al length. The esophagus was otherwise normal. A biopsy was performed using cold forceps. Sample sent for histolog y. Decreased parastalsis of the esophagus with mild resistance traversing the GEJ suspicous for motility disorder i.e. achalasia. STOMACH: There was a small amount of residual food in the gastric body. Based on this, I suspect the patient has some level of gastroparesis. A biopsy was performed using cold forceps. Sample sent for histology. DUODENUM: The duodenum was normal. ADVERSE EVENTS: There were no complications. IMPRESSIONS: 1. The z-line was noted at 40cm from the incisors 2. Esophagitis in the lower third of the esophagus 3. The esophagus was otherwise normal; biopsy was performed 4. Decreased parastalsis of the esophagus with mild resistance traversing the GEJ suspicous for maldonado lity disorder i.e. achalasia 5. Food residue in the gastric body; biopsy was performed 6. The duodenum was normal 7. No luminal causes of obstruction seen. If mid-esophagus biopsies are negative for EoE, the patien t will need esophageal manometry. RECOMMENDATIONS: 1. Await biopsy results 2. Continue PPI PO once daily 3. Dysphagia precautions 4. Small, frequent low fat meals 5. Will sign off. Please follow-up with GI in 2-4 weeks REPEAT EXAM: Marino Potts MD eSigned: Marino Potts MD 09/05/2019 11:05 AM CC: CPT CODES: 78107 Upper gastrointestinal endoscopy including esophagus, stomach, and either the du odenum and/or jejunum as appropriate; with biopsy, single or multiple ICD CODES: 787.20 Dysphagia,unspecified V12.79 Personal history of other specified digestive system diseases 530.10 Esophagitis,unspecified 935.2 Foreign body in stomach The ICD and CPT codes recommended by this software are interpretations from the data that the [facility] staff has captured with the software. The verification of the translation of this report to the ICD and CPT co ellen and modifiers is the sole responsibility of the health care institution and practicing physician where this report was generated. [employer] will not be held responsible for the validity of the ICD and CPT codes i ncluded on this report. [facility] assumes no liability for data contained or not contained herein. CPT is a registered tra demark of the [employer]. PATIENT NAME: Telly Angel MR#: [id number]
[2019-09-05] MEDS ORDERED: EPHEDRINE ONE (11:10)
[2019-09-05] MEDS: METHADONE PO SCH ×2 (11:27→22:32)
[2019-09-05] MEDS: ZOCOR PO SCH (20:44)
[2019-09-05] MEDS: LANTUS INSULIN SUBQ SCH (20:44)
--- NOTE | 2019-09-05 21:43 | PROGRESS NOTE ---
DATE: 09/05/2019 SUBJECTIVE: The patient is not feeling well. He has acid reflux symptoms, not able to swallow. OBJECTIVE: vital signs: On examination, temperature is 98 degrees. Vitals are stable. Saturating 94% on room air. HEENT: Exam within normal limits. Neck: Is supple. Chest: Is clear. Heart: Sounds are regular. Abdomen: Belly is soft, nontender. Neurologic: No obvious deficits. ASSESSMENT AND PLAN: 1. Dysphagia, acid reflux disease. Waiting for EGD by Dr. Browne's group. 2. Polycythemia, most likely from testosterone. Repeat hematocrit came down to normal. Follow up on JAK2 mutation. Continue IV fluids. The patient is NPO. He did receive the insulin last night. He is monitoring the freestyle lever and based on the esophagogastroduodenoscopy further recommendations will be followed. Appreciated Gastroenterology consult. LEVEL OF DOCUMENTATION: Is 25 minutes. cc: Gavin Mcclendon MD
[2019-09-06] MEDS: NS 1,000 ML IV SCH ×2 (05:35→16:48)
[2019-09-06] MEDS: OXY IR PO SCH ×3 (05:35→21:57)
[2019-09-06] MEDS: PROTONIX PO SCH ×2 (05:37→06:28)
[2019-09-06] MEDS: VENTOLIN HFA INH SCH ×3 (07:59→20:10)
[2019-09-06] MEDS: ATROVENT HFA INH SCH ×3 (07:59→20:10)
[2019-09-06] MEDS: SYMBICORT 160/4.5 MICROGM INHALER INH SCH ×2 (07:59→20:10)
[2019-09-06] MEDS: NICODERM PATCH TD SCH (09:52)
[2019-09-06] MEDS: PRINZIDE 10/12.5MG PO SCH (09:52)
[2019-09-06] MEDS: METHADONE PO SCH ×2 (09:52→21:57)
[2019-09-06] MEDS: ASPIRIN PO SCH (09:52)
[2019-09-06] MEDS: PROTONIX IV SCH (09:58)
[2019-09-06] MEDS: SODIUM CHLORIDE 0.9% INJ SCH (09:58)
[2019-09-06] MEDS: ZOCOR PO SCH (21:58)
[2019-09-06] MEDS: LANTUS INSULIN SUBQ SCH (21:58)
--- NOTE | 2019-09-06 22:09 | PROGRESS NOTE ---
DATE: 09/06/2019 SUBJECTIVE: The patient has trouble swallowing this morning while eating breakfast, choking, mostly up in the esophagus. EGD findings noted esophagitis with achalasia. Scheduled for manometry test. Other than that, no other complaints. PHYSICAL EXAMINATION: Vital signs: Temperature is 98 degrees, pulse 79. Vitals are stable. HEENT: Within normal limits. Neck: Supple. Chest: Bilateral air entry. Heart: Sounds are regular. Abdomen: Belly is soft, nontender. Good bowel sounds. Neurologic: No neurological deficits. ASSESSMENT AND PLAN: 1. Intermittent dysphagia due to esophagitis and achalasia. 2. Secondary polycythemia due to testosterone. Follow up on JAK2 mutation and repeat the labs in the morning. We will discuss with Dr. Potts as well as Dr. Alaniz about the biopsy report. In the meantime, we will change the Protonix to intravenous with intravenous fluids. I advised the patient to take pureed diet and we will see the pattern of his swallowing over the next 24 hours, and also we will get Speech Therapy evaluation for aspiration. Continue present treatment for diabetes. LEVEL OF DOCUMENTATION: 25 minutes. cc: Gavin Mcclendon MD
[2019-09-07] MEDS: NS 1,000 ML IV SCH (04:06)
[2019-09-07] MEDS: OXY IR PO SCH ×3 (06:10→21:10)
[2019-09-07] MEDS: VENTOLIN HFA INH SCH ×3 (08:33→20:05)
[2019-09-07] MEDS: SYMBICORT 160/4.5 MICROGM INHALER INH SCH ×2 (08:34→20:05)
[2019-09-07] MEDS: ATROVENT HFA INH SCH ×3 (08:34→20:05)
[2019-09-07 08:47] LABS: HEMATOCRIT 45.4 % (42.0-52.0); HEMOGLOBIN 15.1 g/dL (14.0-18.0); MCH 28.8 PG (27-31); MCHC 33.3 g/dL (33-37); MCV 86.6 FL (81-99); MPV 9.5 FL (7.4-10.4); RBC 5.24 XMIL (4.7-6.1); RDW 14.6 % (11.5-14.5); WBC 10.51 X1000 (4.8-10.8)
[2019-09-07 09:17] LABS: AGAP 12; BUN 16 mg/dL (8-22); CALCIUM 8.6 mg/dL (8.8-10.2); CHLORIDE 93 mmol/L (98-107); COSMO 270; CREATININE 0.9 mg/dL (0.7-1.2); ESTIMATED GFR > 60; GLUCOSE 183 mg/dL (70-104); POTASSIUM 4.1 mmol/L (3.5-5.1); SODIUM 132 mmol/L (136-145); TCO2 27 mmol/L (25-35)
[2019-09-07] MEDS: METHADONE PO SCH ×2 (09:59→23:01)
[2019-09-07] MEDS: ASPIRIN PO SCH (09:59)
[2019-09-07] MEDS: NICODERM PATCH TD SCH ×2 (09:59→10:01)
[2019-09-07] MEDS: PRINZIDE 10/12.5MG PO SCH (09:59)
[2019-09-07] MEDS: PROTONIX IV SCH (10:00)
[2019-09-07] MEDS: SODIUM CHLORIDE 0.9% INJ SCH (10:00)
--- NOTE | 2019-09-07 10:01 | PROGRESS NOTE ---
DATE: 09/07/2019 SUBJECTIVE: The patient still has trouble swallowing. Findings discussed with the patient. EGD showed esophagitis with achalasia. REVIEW OF SYSTEMS: None reported. PHYSICAL EXAMINATION: Vital Signs: Temp is 97. Vitals are stable. HEENT: Within normal limits. Neck: Supple. No lymphadenopathy. Chest: Clear. Heart: Heart sounds are regular. Abdomen: Belly is soft, nontender. ASSESSMENT AND PLAN: 1. Polycythemia, most likely from testosterone shots. Pending JAK2 mutation. 2. Atypical chest pain. Stress test was negative. 3. Elevated white cell count. Will follow up on the CBC and BMP. 4. Intermittent choking in the upper part of the neck. Modified barium swallow today is pending. Outpatient manometry studies as per Dr. Potts, and also follow up on biopsy report. Continue present pain management for his chronic pain, and will follow up. LEVEL OF DOCUMENTATION: 25 minutes. cc: Gavin Mcclendon MD
--- NOTE | 2019-09-07 11:42 | Diag Imaging Result Doc PS360 ---
EXAM: BA SWALLOW W/VIDEO SPEECH THER INDICATION: dysphagia TECHNIQUE: COMPARISON: None. FINDINGS: Oropharyngeal and upper esophageal thin liquid and pudding consistency bolus propagation was unremarkable. No aspiration was appreciated. There is no evidence of cricopharyngeus spasm. Limited views of the distal esophagus appears normal as well. There is normal passage of contrast through the gastroesophageal junction. IMPRESSION: Unremarkable modified barium swallow. Please see speech pathology report for full details. Electronically signed by Luís Smith 09/07/2019 11:39 AM
[2019-09-07] MEDS: ZOCOR PO SCH (21:09)
[2019-09-07] MEDS: LANTUS INSULIN SUBQ SCH (21:10)
[2019-09-08] MEDS: NS 1,000 ML IV SCH (01:24)
[2019-09-08] MEDS: OXY IR PO SCH (06:17)
[2019-09-08 08:02] VITALS: BP 134/67
[2019-09-08] MEDS ORDERED: PREVNAR 13 IM ONE (08:16)
[2019-09-08] MEDS: NICODERM PATCH TD SCH (08:47)
[2019-09-08] MEDS: ASPIRIN PO SCH (08:47)
[2019-09-08] MEDS: PRINZIDE 10/12.5MG PO SCH (08:48)
[2019-09-08] MEDS: PROTONIX IV SCH (08:49)
[2019-09-08] MEDS: METHADONE PO SCH (09:12)
[2019-09-08] MEDS ORDERED: G.I. COCKTAIL PO ONE (09:19)
[2019-09-08] MEDS: SYMBICORT 160/4.5 MICROGM INHALER INH SCH (09:43)
[2019-09-08] MEDS: VENTOLIN HFA INH SCH (09:43)
[2019-09-08] MEDS: ATROVENT HFA INH SCH (09:43)
--- NOTE | 2019-09-10 16:10 | DISCHARGE SUMMARY ---
ADMISSION DATE: 09/06/2019 DISCHARGE DATE: 09/08/2019 DISCHARGING DIAGNOSIS: 1. Dysphagia due to significant reflux esophagitis and achalasia. SECONDARY DIAGNOSIS: 1. Atypical chest pain. Stress test was negative. 2. Chronic nicotine abuse. 3. Type 2 diabetes. 4. Chronic pain with Dr. Lagos. 5. Hypertension. 6. Hyperlipidemia. 7. Hypogonadism. 8. Acid reflux. 9. Superficial bladder cancer under the care of Dr. Foster. 10. 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 JAK2 mutation was negative. CONSULTS: Dr. Potts. PROCEDURES: EGD, esophagitis at the lower 3rd of the esophagus. Decreased peristalsis. Mild resistance at the GE junction. Biopsies reported H. pylori was negative, chronic active gastritis, reactive squamous mucosa with increased epithelial lymphocytes and eosinophils. Bile effects. Barium swallow unremarkable. Normal passage of the contrast to the GE junction. There is no evidence of cricopharyngeal spasm. BRIEF HISTORY: Please see the H P that was done 09/04/2019. In brief, he is a 59-year-old gentleman recently suffering from choking spells in the upper part of the esophagus and with atypical chest pain. He was seen in the emergency room. He also has substantial elevation of hematocrit 64. The patient came as a follow up in my office. 1. As part of the chest pain, EKG was negative. Outpatient stress test in my office was negative for ischemic heart disease. 2. He continues to have choking spells, not able to swallow. Admitted to the hospital for impending dehydration. He was given IV fluids. After hydration, hematocrit came back to 51. A JAK2 mutation was negative. At this time, polycythemia is due to combination of testosterone shots and probable tobacco abuse. 3. As a part of the dysphagia, GI workup was done. It showed some motility disorder, some reflux esophagitis. A modified barium swallow was negative. Nevertheless, biopsy showed some eosinophils, also consider eosinophilic esophagitis. He was choking with food. The rest of the hospital course was uneventful. LABS: White cell count 10, hematocrit 45, platelets 228,000. Sodium 132, potassium 4.1, BUN 16, creatinine 0.9, glucose 183. JAK2 mutation was negative. Blood cultures 08/29/2019 diphtheroids, gram-positive rods. Second one was negative. Chest x-ray on 08/29/[address] pulmonary angiogram was done 08/29/2019. No PE, esophageal thickening, cholecystectomy, distended stomach. DISCHARGE INSTRUCTIONS ARE FOLLOWS: Continue PPI and rule out eosinophilic esophagitis. Control diabetes. Quit smoking. Medications: 1. Simvastatin 20 daily. 2. Protonix 40 daily. 3. Glyburide 5 mg 2 tablets in the morning. 4. Oxycodone 30 t.i.d. 5. Lisinopril/hydrochlorothiazide 20/25 in the morning. 6. Atrovent 2 puffs t.i.d. 7. Symbicort 160/4.5 two puffs b.i.d. 8. Ventolin HFA as needed. 9. Testosterone shots 1 mL every 2 weeks. 10. Methadone 20 b.i.d. 11. Aspirin 325 daily. 12. Lantus 60 units at bedtime. 13. We will use topical steroids and if no better, consider manometry study, upper GI series, and also rule out gastroparesis. We will follow up in my office in 10 days. cc: MD Marino Appiah MD MTDD
[2019-09-15] MEDS ORDERED: DEPO-TESTOSTERONE IM SCH (09:00)
== END 2019-09-08 11:33 | disposition home or self-care (01) | DRG 392 ==
LOC: DIRADM 14:51 → INTOOBSV 14:51 → 3N 15:17
PROVIDERS: ADMIT Internal Medicine; ATTEND Internal Medicine